=== PATIENT | male | born 1945 | race Caucasian/White ===

== ENCOUNTER 2016-11-18 11:46 | Day surgery (SDC) | payer MEDICARE, BC ==
[~2016-11-18 11:46] MED LIST: CELEBREX200 MG PO; CELEBREX50 MG PO; HYDROCHLOROTH12.5 MG PO; LOVASTATIN20 MG PO; MULTIVITAMINS1 EAC1 PO; NORCO 325-10 MG1 TAB PO; NORCO 325-5 MG1 TAB PO; PRILOSEC40 MG PO; TESTOSTERO200 MG/1 M INJECT; VASOTEC10 MG PO; VASOTEC20 MG PO; ZYLOPRIM300 MG PO
== END 2016-11-18 12:58 | disposition short-term general hospital (02) ==
LOC: SURGOP 11:46 → INF/INJ 15:40 → SURGOP 15:56
PROC: 3E0U3BZ Introduction of Anesthetic Agent into Joints, Percutaneous Approach (ICD-10-PCS; principal; 2016-11-18)
PROC: 3E0U33Z Introduction of Anti-inflammatory into Joints, Percutaneous Approach (ICD-10-PCS; 2016-11-18)
PROC: BR16ZZZ Fluoroscopy of Lumbar Facet Joint(s) (ICD-10-PCS; 2016-11-18)
DX: M47.816 Spondylosis without myelopathy or radiculopathy, lumbar region (principal); Z88.0 Allergy status to penicillin; Z88.6 Allergy status to analgesic agent; Z79.899 Other long term (current) drug therapy
CPT/HCPCS: J1040

== ENCOUNTER → 2016-12-02 | Outpatient (CLI) | payer MEDICARE, BC | END | disposition short-term general hospital (02) | LOC: CLPAIN 09:19 | DX: R10.9 Unspecified abdominal pain (principal); M47.896 Other spondylosis, lumbar region; M54.14 Radiculopathy, thoracic region; Z88.0 Allergy status to penicillin; Z88.8 Allergy status to other drugs, medicaments and biological substances; Z79.899 Other long term (current) drug therapy ==

== ENCOUNTER 2016-12-07 17:57 | Emergency (ER) | payer MEDICARE, BC ==
[~2016-12-07] VITALS: Ht 177.8 cm; Wt 95.2 kg
== END 2016-12-07 19:45 | disposition short-term general hospital (02) ==
LOC: ER 17:57
DX: F41.9 Anxiety disorder, unspecified (principal); M25.512 Pain in left shoulder; I10 Essential (primary) hypertension; D69.6 Thrombocytopenia, unspecified; E87.1 Hypo-osmolality and hyponatremia; E78.5 Hyperlipidemia, unspecified; E78.00 Pure hypercholesterolemia, unspecified; K21.9 Gastro-esophageal reflux disease without esophagitis; M15.9 Polyosteoarthritis, unspecified; Z98.890 Other specified postprocedural states; Z87.891 Personal history of nicotine dependence

== ENCOUNTER 2016-12-16 12:06 | Day surgery (SDC) | payer MEDICARE, BC | END 2016-12-16 14:56 | disposition short-term general hospital (02) | LOC: SURGOP 12:06 | PROC: 3E0T3BZ Introduction of Anesthetic Agent into Peripheral Nerves and Plexi, Percutaneous Approach (ICD-10-PCS; principal; 2016-12-16) | PROC: 3E0T33Z Introduction of Anti-inflammatory into Peripheral Nerves and Plexi, Percutaneous Approach (ICD-10-PCS; 2016-12-16) | DX: M47.816 Spondylosis without myelopathy or radiculopathy, lumbar region (principal); N40.0 Benign prostatic hyperplasia without lower urinary tract symptoms; K21.9 Gastro-esophageal reflux disease without esophagitis; E78.5 Hyperlipidemia, unspecified; I10 Essential (primary) hypertension; Z88.6 Allergy status to analgesic agent; Z88.0 Allergy status to penicillin; Z79.891 Long term (current) use of opiate analgesic; Z79.899 Other long term (current) drug therapy; Z87.19 Personal history of other diseases of the digestive system; Z90.49 Acquired absence of other specified parts of digestive tract; Z81.8 Family history of other mental and behavioral disorders; Z87.891 Personal history of nicotine dependence | CPT/HCPCS: J1040 ==

== ENCOUNTER → 2017-01-06 | Outpatient (CLI) | payer MEDICARE, BC | END | disposition short-term general hospital (02) | LOC: CLPAIN 08:54 | DX: M47.816 Spondylosis without myelopathy or radiculopathy, lumbar region (principal); N20.0 Calculus of kidney; M54.14 Radiculopathy, thoracic region ==

== ENCOUNTER → 2017-01-20 | Outpatient (CLI) | payer MEDICARE, BC | END | disposition short-term general hospital (02) | LOC: CLPAIN 08:35 | DX: M47.816 Spondylosis without myelopathy or radiculopathy, lumbar region (principal); M54.14 Radiculopathy, thoracic region; G89.4 Chronic pain syndrome ==

== ENCOUNTER → 2017-03-03 | Outpatient (CLI) | payer MEDICARE, BC | END | disposition short-term general hospital (02) | LOC: CLPAIN 07:46 | DX: M54.14 Radiculopathy, thoracic region (principal) ==